=== PATIENT | female | born 1990 | race Caucasian/White ===

== ENCOUNTER 2020-12-11 15:49 | Inpatient (IN) | payer MEDICAID, SELFPAY ==
[2020-12-11 15:50] VITALS: BP 129/86; PULSE 93; RESP 16; O2SAT 96; BMI 40.3
[2020-12-11 16:11] LABS: Add Urine Microscopic? NO
[2020-12-11 16:14] VITALS: RESP 15
[2020-12-11 16:19] LABS: Basophils % 0.3 %; Eosinophils # 0.2 10^3/uL (0.0-0.8); Eosinophils % 1.8 %; Hematocrit 38.4 % (37.0-47.0); Hemoglobin 12.1 g/dL (11.5-15.3); Lymphocytes # 2.6 10^3/uL (0.8-4.8); Lymphocytes % 23.9 %; Mean Corpuscular HGB Conc 31.5 g/dL (30.0-36.0); Mean Corpuscular Hemoglobin 26.8 pg (28.0-34.0); Mean Corpuscular Volume 85.1 fL (81-99); Mean Platelet Volume 8.3 fL (7.4-10.4); Monocytes # 1.2 10^3/uL (0.2-0.9); Monocytes % 10.9 %; Neutrophils % 62.2 %; Nucleated Red Blood Cells % 0 %; Platelet Count 214 10^3/cmm (130-400); Red Blood Count 4.51 10^6/uL (4.1-5.3); Red Cell Distribution Width 17.4 % (12.1-15.1); White Blood Count 10.8 10^3/uL (4.0-10.0)
--- NOTE | 2020-12-11 16:20 | W.ED.PSYCH ---
Documented by User: Chevy Mason DO 12/14/20 16:49 HPI - Psych General: Chief Complaint: Psychiatric Symptoms Stated Complaint: HI/SI Time Seen by Provider: 12/11/20 15:52 History of Present Illness: HPI Narrative: 30-year-old female who is in a residential home. She was sent here by the staff they verbally reported to us that she had made suicidal threats although she denies it. She tells that she was upset because her smoking privileges have been revoked. When the staff called she stated they would not be sending any affidavits with her when the ambulance brought her in. On arrival here she is in good spirits she denies any suicidal or homicidal ideation admits she got angry because they revoked her smoking privileges. Is not given any of her as needed meds today. complaint: other (Explosive anger outburst.) Onset (ago): hour(s) Duration: intermittent History of same: Yes Relieving factors: none Exacerbating factors: none Context: other (became upset) Treatments prior to arrival: none Review of Systems Const: Denies: fever(s), chills, body aches, change in appetite, fatigue or malaise ENMT: Denies: throat pain, ear or mastoid pain, nasal discharge or nasal congestion Card: Denies: chest pain, edema, dyspnea on exertion or orthopnea Resp: Denies: dyspnea, productive cough or non-productive cough GI: Denies: abdominal pain, nausea, vomiting, hematemesis, coffee ground emesis, diarrhea, constipation, bloating, hematochezia or melena : Denies: flank pain, difficulty voiding, dysuria, urinary frequency or urinary urgency Skin/Breast: Denies: rash or pruritus Physical Exam Const: COMMON NORMALS: no acute distress GENERAL APPEARANCE: cooperative and comfortable ORIENTATION/CONSCIOUSNESS: Yes awake, Yes oriented to person, Yes oriented to place and Yes oriented to time HENMT: COMMON NORMALS: normocephalic, atraumatic and hearing grossly normal bilaterally HEAD & SCALP: normocephalic and atraumatic Neck/C-Spine: COMMON NORMALS: no JVD Resp: COMMON NORMALS: normal respiratory effort, No retractions, No use of accessory muscles and clear to auscultation bilaterally AUSCULTATION: clear to auscultation bilaterally Cardio: COMMON NORMALS: no JVD, regular rate, regular rhythm and No murmurs present (Cardio) RATE: regular rate RHYTHM: regular rhythm GI: COMMON NORMALS: Soft to palpation and No hepatosplenomegaly present AUSCULTATION: Yes normoactive bowel sounds PALPATION: Yes Soft to palpation, No Tenderness to palpation present (GI), No Guarding due to palpation present (GI) and Yes No hepatosplenomegaly present Extremity: COMMON NORMALS: normal to inspection, capillary refill normal, no clubbing, cyanosis or edema, no calf tenderness and no pedal edema Neuro: SENSORIUM/ORIENTATION: Yes oriented to person, Yes oriented to place and Yes oriented to time Skin: COMMON NORMALS: no rashes or lesions noted GENERAL SKIN EXAM: no rashes or lesions noted MDM - Psych MDM Narrative: Medical decision making narrative: Patient presented via EMS to complaint per the [facility] was that she was suicidal however they declined to send a caregiver to witness and declined to sign any affidavits initially. Patient denied any suicidal ideation while here and we were intending to discharge. The [facility] then states they had emergently discharged and refused to take her back. We are working looking at different options for disposition at this point care turned over to Dr. Joshua have discussed the case with him. Lab Data: Labs: Lab Results 12/11/20 12/11/20 12/11/20 Range/Units 16:07 16:07 16:10 WBC 10.8 H (4.0-10.0) 10^3/ uL RBC 4.51 (4.1-5.3) 10^6/u L Hgb 12.1 (11.5-15.3) g/dL Hct 38.4 (37.0-47.0) % MCV 85.1 (81-99) fL MCH 26.8 L (28.0-34.0) pg MCHC 31.5 (30.0-36.0) g/dL RDW 17.4 H (12.1-15.1) % Plt Count 214 (130-400) 10^3/c mm MPV 8.3 (7.4-10.4) fL Neut % (Auto) 62.2 % Lymph % (Auto) 23.9 % [place] % (Auto) 10.9 % Eos % (Auto) 1.8 % Baso % (Auto) 0.3 % Neut # (Auto) 6.70 (1.8-7.7) 10^3/u L Lymph # (Auto) 2.6 (0.8-4.8) 10^3/u L [place] # (Auto) 1.2 H (0.2-0.9) 10^3/u L Eos # (Auto) 0.2 (0.0-0.8) 10^3/u L Baso # (Auto) 0.0 (0.0-0.1) 10^3/u L Nucleated RBC % (a uto) 0 % Nucleated RBCs # 0.0 /100WBC Sodium (136-145) mmol/L Potassium (3.5-5.1) mmol/L Chloride (98-107) mmol/L Carbon Dioxide (22-29) mmol/L Anion Gap (5-19) BUN (6-20) mg/dL Creatinine (0.5-0.9) mg/dL GFR Calculation (90-130) mL/min Glucose (65-115) mg/dL Calculated Osmolal ity (285-295) mOsm/k g Calcium (8.5-10.5) mg/dL Total Bilirubin (0.15-1.2) mg/dL AST (0-32) U/L ALT (0-33) U/L Alkaline Phosphata se (35-105) IU/L Total Protein (6.6-8.7) g/dL Albumin (3.5-5.2) g/dL Globulin (1.3-4.6) g/dL HCG, Qual Negative (Negative) Urine Color Yellow (Yellow) Urine Appearance Clear (CLEAR) Urine pH 7 (5-7) Ur Specific Gravit y 1.005 (1.005-1.030) Urine Protein Neg (Negative) Urine Glucose (UA) Norm (Normal) Urine Ketones Negative (Negative) Urine Blood Neg (Negative) Urine Nitrate Negative (Negative) Urine Bilirubin Neg (Negative) Urine Urobilinogen Norm (Negative) mg/dL Ur Leukocyte Kati ase Negative (Negative) Salicylates (3-10) mg/dL Acetaminophen (10-30) ug/mL Valproic Acid (50-100) ug/mL 12/11/20 12/12/20 Range/Units 16:10 06:54 WBC (4.0-10.0) 10^3/ uL RBC (4.1-5.3) 10^6/u L Hgb (11.5-15.3) g/dL Hct (37.0-47.0) % MCV (81-99) fL MCH (28.0-34.0) pg MCHC (30.0-36.0) g/dL RDW (12.1-15.1) % Plt Count (130-400) 10^3/c mm MPV (7.4-10.4) fL Neut % (Auto) % Lymph % (Auto) % Beau[place] % (Auto) % Eos % (Auto) % Baso % (Auto) % Neut # (Auto) (1.8-7.7) 10^3/u L Lymph # (Auto) (0.8-4.8) 10^3/u L [place] # (Auto) (0.2-0.9) 10^3/u L Eos # (Auto) (0.0-0.8) 10^3/u L Baso # (Auto) (0.0-0.1) 10^3/u L Nucleated RBC % (a uto) % Nucleated RBCs # /100WBC Sodium 138 (136-145) mmol/L Potassium 4.3 (3.5-5.1) mmol/L Chloride 103 (98-107) mmol/L Carbon Dioxide 23 (22-29) mmol/L Anion Gap 16.3 (5-19) BUN 7 (6-20) mg/dL Creatinine 0.8 (0.5-0.9) mg/dL GFR Calculation 84.2 L (90-130) mL/min Glucose 107 (65-115) mg/dL Calculated Osmolal ity 284 L (285-295) mOsm/k g Calcium 8.7 (8.5-10.5) mg/dL Total Bilirubin 0.2 (0.15-1.2) mg/dL AST 14 (0-32) U/L ALT 18 (0-33) U/L Alkaline Phosphata se 79 (35-105) IU/L Total Protein 7.9 (6.6-8.7) g/dL Albumin 3.9 (3.5-5.2) g/dL Globulin 4.0 (1.3-4.6) g/dL HCG, Qual (Negative) Urine Color (Yellow) Urine Appearance (CLEAR) Urine pH (5-7) Ur Specific Gravit y (1.005-1.030) Urine Protein (Negative) Urine Glucose (UA) (Normal) Urine Ketones (Negative) Urine Blood (Negative) Urine Nitrate (Negative) Urine Bilirubin (Negative) Urine Urobilinogen (Negative) mg/dL Ur Leukocyte Kati ase (Negative) Salicylates 0.5 L (3-10) mg/dL Acetaminophen < 5.0 L (10-30) ug/mL Valproic Acid 15.6 L (50-100) ug/mL Discharge Plan Discharge Patient Disposition: Admitted As Inpatient Admit Provider: Chrsitian Adamson Clinical Impression: Intermittent explosive, Bipolar disorder, Depression Condition: Stable Coding Level of Care Code ED Data Analyst Etl Developer for Chg Fwd Exam Comprehensive Documented by User: Asad Joshua MD 12/11/20 21:01 HPI - Psych General: Chief Complaint: Psychiatric Symptoms Stated Complaint: HI/SI Time Seen by Provider: 12/11/20 15:52 MDM - Psych MDM Narrative: Medical decision making narrative: I took patient over from Dr. Presley. I did speak to the psychiatric nursing aide who had witnessed the event. She states that she was very agitated and tried to harm the staff and also made suicidal statements about breaking a pot and cutting her neck. Patient here has been cooperative but spoke to the psychiatrist will admit here for observation for this event. Lab Data: Labs: Lab Results 12/11/20 12/11/20 12/11/20 Range/Units 16:07 16:07 16:10 WBC 10.8 H (4.0-10.0) 10^3/ uL RBC 4.51 (4.1-5.3) 10^6/u L Hgb 12.1 (11.5-15.3) g/dL Hct 38.4 (37.0-47.0) % MCV 85.1 (81-99) fL MCH 26.8 L (28.0-34.0) pg MCHC 31.5 (30.0-36.0) g/dL RDW 17.4 H (12.1-15.1) % Plt Count 214 (130-400) 10^3/c mm MPV 8.3 (7.4-10.4) fL Neut % (Auto) 62.2 % Lymph % (Auto) 23.9 % Beau[place] % (Auto) 10.9 % Eos % (Auto) 1.8 % Baso % (Auto) 0.3 % Neut # (Auto) 6.70 (1.8-7.7) 10^3/u L Lymph # (Auto) 2.6 (0.8-4.8) 10^3/u L [place] # (Auto) 1.2 H (0.2-0.9) 10^3/u L Eos # (Auto) 0.2 (0.0-0.8) 10^3/u L Baso # (Auto) 0.0 (0.0-0.1) 10^3/u L Nucleated RBC % (a uto) 0 % Nucleated RBCs # 0.0 /100WBC Sodium (136-145) mmol/L Potassium (3.5-5.1) mmol/L Chloride (98-107) mmol/L Carbon Dioxide (22-29) mmol/L Anion Gap (5-19) BUN (6-20) mg/dL Creatinine (0.5-0.9) mg/dL GFR Calculation (90-130) mL/min Glucose (65-115) mg/dL Calculated Osmolal ity (285-295) mOsm/k g Calcium (8.5-10.5) mg/dL Total Bilirubin (0.15-1.2) mg/dL AST (0-32) U/L ALT (0-33) U/L Alkaline Phosphata se (35-105) IU/L Total Protein (6.6-8.7) g/dL Albumin (3.5-5.2) g/dL Globulin (1.3-4.6) g/dL HCG, Qual Negative (Negative) Urine Color Yellow (Yellow) Urine Appearance Clear (CLEAR) Urine pH 7 (5-7) Ur Specific Gravit y 1.005 (1.005-1.030) Urine Protein Neg (Negative) Urine Glucose (UA) Norm (Normal) Urine Ketones Negative (Negative) Urine Blood Neg (Negative) Urine Nitrate Negative (Negative) Urine Bilirubin Neg (Negative) Urine Urobilinogen Norm (Negative) mg/dL Ur Leukocyte Kati ase Negative (Negative) Salicylates (3-10) mg/dL Acetaminophen (10-30) ug/mL Valproic Acid (50-100) ug/mL 12/11/20 12/12/20 Range/Units 16:10 06:54 WBC (4.0-10.0) 10^3/ uL RBC (4.1-5.3) 10^6/u L Hgb (11.5-15.3) g/dL Hct (37.0-47.0) % MCV (81-99) fL MCH (28.0-34.0) pg MCHC (30.0-36.0) g/dL RDW (12.1-15.1) % Plt Count (130-400) 10^3/c mm MPV (7.4-10.4) fL Neut % (Auto) % Lymph % (Auto) % [place] % (Auto) % Eos % (Auto) % Baso % (Auto) % Neut # (Auto) (1.8-7.7) 10^3/u L Lymph # (Auto) (0.8-4.8) 10^3/u L [place] # (Auto) (0.2-0.9) 10^3/u L Eos # (Auto) (0.0-0.8) 10^3/u L Baso # (Auto) (0.0-0.1) 10^3/u L Nucleated RBC % (a uto) % Nucleated RBCs # /100WBC Sodium 138 (136-145) mmol/L Potassium 4.3 (3.5-5.1) mmol/L Chloride 103 (98-107) mmol/L Carbon Dioxide 23 (22-29) mmol/L Anion Gap 16.3 (5-19) BUN 7 (6-20) mg/dL Creatinine 0.8 (0.5-0.9) mg/dL GFR Calculation 84.2 L (90-130) mL/min Glucose 107 (65-115) mg/dL Calculated Osmolal ity 284 L (285-295) mOsm/k g Calcium 8.7 (8.5-10.5) mg/dL Total Bilirubin 0.2 (0.15-1.2) mg/dL AST 14 (0-32) U/L ALT 18 (0-33) U/L Alkaline Phosphata se 79 (35-105) IU/L Total Protein 7.9 (6.6-8.7) g/dL Albumin 3.9 (3.5-5.2) g/dL Globulin 4.0 (1.3-4.6) g/dL HCG, Qual (Negative) Urine Color (Yellow) Urine Appearance (CLEAR) Urine pH (5-7) Ur Specific Gravit y (1.005-1.030) Urine Protein (Negative) Urine Glucose (UA) (Normal) Urine Ketones (Negative) Urine Blood (Negative) Urine Nitrate (Negative) Urine Bilirubin (Negative) Urine Urobilinogen (Negative) mg/dL Ur Leukocyte Kati ase (Negative) Salicylates 0.5 L (3-10) mg/dL Acetaminophen < 5.0 L (10-30) ug/mL Valproic Acid 15.6 L (50-100) ug/mL Discharge Plan Discharge Patient Disposition: Admitted As Inpatient Admit Provider: Christian Adamson Clinical Impression: Intermittent explosive, Bipolar disorder, Depression Condition: Stable Coding Level of Care Code ED Data Analyst Etl Developer for Felixg Fwd Exam Comprehensive
[2020-12-11 16:41] LABS: Bilirubin Urine Neg (Negative); Blood Urine Neg (Negative); Glucose Urine UA Norm (Normal); Ketones Urine Negative (Negative); Leukocyte Esterase Urine Negative (Negative); Nitrate Urine Negative (Negative); Protein Urine Neg (Negative); Specific Gravity, Urine 1.005 (1.005-1.030); Urine Appearance Clear (CLEAR); Urine Color Yellow (Yellow); Urobilinogen Urine Norm (Negative); pH Urine 7 (5-7)
[2020-12-11 16:42] LABS: HCG Qualitative Urine. Negative (Negative)
[2020-12-11 16:56] LABS: Alanine Aminotransferase 18 U/L (0-33); Albumin Level 3.9 g/dL (3.5-5.2); Alkaline Phosphatase 79 IU/L (35-105); Anion Gap 16.3 (5-19); Aspartate Amino Transferase 14 U/L (0-32); Blood Urea Nitrogen 7 mg/dL (6-20); Calcium 8.7 mg/dL (8.5-10.5); Carbon Dioxide 23 mmol/L (22-29); Chloride 103 mmol/L (98-107); Glomerular Filtration Rate 84.2 mL/min (90-130); Glucose 107 mg/dL (65-115); Osmolality Calculated 284 mOsm/kg (285-295); Potassium 4.3 mmol/L (3.5-5.1); Salicylate 0.5 mg/dL (3-10); Sodium 138 mmol/L (136-145); Total Bilirubin 0.2 mg/dL (0.15-1.2); Total Protein 7.9 g/dL (6.6-8.7)
[2020-12-11 17:01] LABS: Acetaminophen < 5.0 ug/mL (10-30)
[2020-12-11 18:14] VITALS: RESP 18
[2020-12-11 21:33] VITALS: BP 107/60; PULSE 73; RESP 18; O2SAT 95
[2020-12-11 22:05] VITALS: BP 125/87; PULSE 87; RESP 18; TEMP 36.1; O2SAT 93
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
--- NOTE | 2020-12-12 02:21 | PC.NURSE ---
BEHAVIOR PT IS ATTENTION SEEKING BUT MOTIVATED BY EXPECTATION OF INDEPENDENCE TO ACHIEVE MOBILITY/SKILLS NECESSARY TO BE IN ISL SITUATION.
[2020-12-12 06:00] VITALS: BP 131/81; PULSE 110; RESP 16; TEMP 36.8; O2SAT 96
[2020-12-12] MEDS: levothyroxine 75 mcg Tablet PO (06:21)
[2020-12-12 07:29] LABS: Valproic Acid Level 15.6 ug/mL (50-100)
[2020-12-12] MEDS: fluticasone nasal spray 16gm Btl 1 SPRAY INTRANASAL (08:16)
[2020-12-12] MEDS: cholecalciferol (vitamin D3) 1,000 unit Tablet 2000 UNIT PO (08:17)
[2020-12-12] MEDS: CLONazepam 1 mg Tablet 1.5 MG PO ×3 (08:18→18:31)
[2020-12-12] MEDS: benztropine 1 mg Tablet 0.5 MG PO ×2 (08:18→18:32)
[2020-12-12] MEDS: topiramate 100 mg Tablet 200 MG PO ×2 (08:19→18:33)
[2020-12-12] MEDS: risperiDONE 2 mg Tablet PO ×2 (08:19→18:32)
[2020-12-12] MEDS: divalproex DR 500 mg Tablet PO ×2 (08:19→13:51)
[2020-12-12] MEDS: oxybutynin 5 mg Tablet 10 MG PO (08:19)
[2020-12-12] MEDS: lacosamide 50 mg Tablet 200 MG PO ×2 (08:51→18:33)
[2020-12-12 14:00] VITALS: BP 112/62; PULSE 92; RESP 16; TEMP 36.8; O2SAT 97
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
[2020-12-12] MEDS: sertraline 100 mg Tablet 150 MG PO (18:32)
[2020-12-12] MEDS: albuterol 8 gm MDI 2 PUFF INHALATION (19:45)
[2020-12-12 19:46] VITALS: PULSE 88; RESP 17; O2SAT 96
[2020-12-12 19:49] VITALS: PULSE 90
[2020-12-12 20:26] VITALS: BP 106/61; PULSE 118; RESP 17; TEMP 36.8; O2SAT 91
[2020-12-12] MEDS: neomycin-poly-bacitracin oint 28 gm 1 APPLIC TOPICAL (20:37)
[2020-12-12] MEDS: trazodone 50 mg Tablet PO (20:38)
[2020-12-12] MEDS: hyDROXYzine 25 mg Capsule 50 MG PO (20:39)
[2020-12-12] MEDS: divalproex DR 500 mg Tablet 750 MG PO (20:39)
--- NOTE | 2020-12-12 20:40 | PC.NURSE ---
Patient requested Trazodone for sleep and Vistaril for anxiety. 50mg Trazodone, 50mg Vistaril given.
[2020-12-13] VITALS (8 sets, daily range): BP systolic 116–143; BP diastolic 77–86; PULSE 91–126; RESP 17–22; TEMP 36.8–37.1; O2SAT 92–96
[2020-12-13] MEDS: levothyroxine 75 mcg Tablet PO (05:44)
[2020-12-13] MEDS: albuterol 8 gm MDI 2 PUFF INHALATION ×2 (07:44→15:35)
[2020-12-13] MEDS: CLONazepam 1 mg Tablet PO ×3 (07:47→16:36)
[2020-12-13] MEDS: CLONazepam 0.5 mg Tablet PO ×3 (07:48→16:37)
[2020-12-13] MEDS: benztropine 1 mg Tablet 0.5 MG PO ×2 (07:48→16:35)
[2020-12-13] MEDS: cholecalciferol (vitamin D3) 1,000 unit Tablet 2000 UNIT PO (07:48)
[2020-12-13] MEDS: oxybutynin 5 mg Tablet 10 MG PO (07:48)
[2020-12-13] MEDS: topiramate 100 mg Tablet 200 MG PO ×2 (07:49→16:34)
[2020-12-13] MEDS: lacosamide 50 mg Tablet 200 MG PO ×2 (07:49→16:34)
[2020-12-13] MEDS: divalproex DR 500 mg Tablet PO ×2 (07:49→11:54)
[2020-12-13] MEDS: fluticasone nasal spray 16gm Btl 1 SPRAY INTRANASAL (07:50)
[2020-12-13] MEDS: risperiDONE 2 mg Tablet PO ×2 (08:05→16:37)
--- NOTE | 2020-12-13 10:59 | PC.RESP ---
Pt had been given 0800 Albuterol MDI, schedule changed, so inhaler not given at 0900.
--- NOTE | 2020-12-13 15:47 | P.PN_ITS ---
Subjective NPU Subjective: Interval history: Letty continues to have significant hypersomnolence during the day but is not presenting any problem to staff or having any anger directed aggression. She had an interview with a residential program and is awaiting to hear. She denies any new or pressing issues and reports she is eating okay. Mental Status Exam MSE Comments: This is an obese versus morbidly obese white female in hospital scrubs with limited grooming and eye contact. No abnormal movements except for psychomotor retardation. Cooperative with exam in no acute distress. Speech wa s decreased rate and volume and childlike. Mood described as okay, affect congruent. Thought process linear. Thought content: Patient denied current suicidal or homicidal ideation, there were no delusions reported or noted, she denied any auditory or visual hallucinations. Attention and concentration were mostly intact intact and memory appeared mostly reliable, but none were formally tested. She is alert and oriented x3. Insight and judgment are limited, impulse control is limited, intellectual ability is impaired. Vitals/I&O/Wt Last Vital Signs Temp 98.2 F 12/13/20 22:00 Pulse 100 12/13/20 22:00 Resp 17 12/13/20 22:00 BP 135/80 12/13/20 22:00 Pulse Ox 92 12/13/20 22:00 Data NPU : 12/11/20 16:10 12/11/20 16:10 A&P Assessment and plan (1) Intermittent explosive: Status: Acute (2) Bipolar disorder: Status: Acute (3) Depression: Status: Acute Additional A&P Information (1) Intellectual disability: Additional A&P Information This is a 30-year-old white female with a long history of intellectual disability and mental health hospitalizations and treatment going back to her teenage years presents again effectively discharged from a long-term secondary to not being able to manage her anger and behaviors. 1. Continue current medication. We will evaluate medications for any need for changes. 2. Continue every 15 minute checks for safety. 3. Encourage individual, group and milieu therapies. 4. We will get collateral information on the circumstances at the long-term and work with the social work team to either get her back to the long-term or alternative living arrangements. Involuntary Hold Information 96 Hour Hold: 96 Hour Involuntary Admission: No Attestations NPU Medical Necessity Statement*: Inpatient hospitalization is medically necessary and the clinically appropriate intervention at this time. We will monitor medications and make changes as indicated. Likely length of stay 2-4 days. Coding Level of Care Code Acute Machine Setter Supervisor for g Fwd Diagnoses Intermittent explosive F63.81 Bipolar disorder F31.9 Depression F32.9
[2020-12-13] MEDS: sertraline 100 mg Tablet 150 MG PO (16:36)
[2020-12-13] MEDS: acetaminophen 325 mg Tablet 650 MG PO (19:42)
[2020-12-13] MEDS: hyDROXYzine 25 mg Capsule 50 MG PO (21:14)
[2020-12-13] MEDS: trazodone 50 mg Tablet PO (21:14)
[2020-12-13] MEDS: divalproex DR 500 mg Tablet 750 MG PO (21:14)
--- NOTE | 2020-12-13 21:15 | PC.NURSE ---
Patient given 50mg PO Trazadone and 50Mg Vistaril 50mg PO for fimsomnia and anxiety: at patient request.
[2020-12-13] MEDS: neomycin-poly-bacitracin oint 28 gm 1 APPLIC TOPICAL (21:22)
[2020-12-14] MEDS: levothyroxine 75 mcg Tablet PO (05:53)
[2020-12-14] MEDS: acetaminophen 325 mg Tablet 650 MG PO ×2 (05:56→19:57)
[2020-12-14 06:00] VITALS: BP 111/65; PULSE 87; RESP 18; TEMP 36.9; O2SAT 92
[2020-12-14] MEDS: cholecalciferol (vitamin D3) 1,000 unit Tablet 2000 UNIT PO (08:26)
[2020-12-14] MEDS: topiramate 100 mg Tablet 200 MG PO ×2 (08:27→16:54)
[2020-12-14] MEDS: risperiDONE 2 mg Tablet PO ×2 (08:27→16:55)
[2020-12-14] MEDS: lacosamide 50 mg Tablet 200 MG PO ×2 (08:28→16:56)
[2020-12-14] MEDS: fluticasone nasal spray 16gm Btl 1 SPRAY INTRANASAL (08:28)
[2020-12-14] MEDS: oxybutynin 5 mg Tablet 10 MG PO (08:28)
[2020-12-14 09:36] VITALS: PULSE 108; RESP 14; O2SAT 95
[2020-12-14] MEDS: albuterol 8 gm MDI 2 PUFF INHALATION ×2 (09:36→14:18)
[2020-12-14] MEDS: benztropine 1 mg Tablet 0.5 MG PO ×2 (10:11→16:54)
[2020-12-14] MEDS: CLONazepam 1 mg Tablet PO ×2 (10:11→21:13)
[2020-12-14] MEDS: divalproex DR 500 mg Tablet PO ×2 (10:11→11:05)
[2020-12-14] MEDS: CLONazepam 0.5 mg Tablet PO ×2 (10:11→21:13)
[2020-12-14 13:36] VITALS: BP 128/92; PULSE 119; RESP 16; TEMP 36.3; O2SAT 99
[2020-12-14 14:22] VITALS: PULSE 97; RESP 14; O2SAT 91
[2020-12-14] MEDS: sertraline 100 mg Tablet 150 MG PO (16:55)
--- NOTE | 2020-12-14 19:22 | P.PN_ITS ---
Subjective NPU Subjective: Interval history: Letty presented to the appointment much how she has during the stay some attention seeking and requesting assistance with basic activities. We reiterated with her that she was hoping to have the ISL eventually she has to start working on her independence. Otherwise no current challenges or new challenges since admission. Mental Status Exam MSE Comments: This is an obese versus morbidly obese white female in hospital scrubs with limited grooming and eye contact. No abnormal movements except for psychomotor retardation and what appears to be an essential tremor. Cooperative with exam in no acute distress. Speech was decreased rate and volume and childlike. Mood described as frustrated, affect congruent. Thought process linear. Thought content: Patient denied current suicidal or homicidal ideation, there were no delusions reported or noted, she denied any auditory or visual hallucinations. Attention and concentration were mostly intact intact and memory appeared mostly reliable, but none were formally tested. She is alert and oriented x3. Insight and judgment are limited, impulse control is limited, intellectual ability is impaired. Vitals/I&O/Wt Last Vital Signs Temp 97.0 F L 12/14/20 20:13 Pulse 77 12/14/20 21:09 Resp 14 12/14/20 21:09 BP 98/66 12/14/20 20:13 Pulse Ox 96 12/14/20 21:09 Data NPU : 12/11/20 16:10 12/11/20 16:10 A&P Assessment and plan (1) Intellectual disability: Status: Acute (2) Intermittent explosive: Status: Acute (3) Bipolar disorder: Status: Acute (4) Depression: Status: Acute Additional A&P Information Additional A&P Information This is a 30-year-old white female with a long history of intellectual disability and mental health hospitalizations and treatment going back to her teenage years presents again effectively discharged from a long term secondary to not being able to manage her anger and behaviors. 1. Continue current medication. We will evaluate medications for any need for changes. 2. Continue every 15 minute checks for safety. 3. Encourage individual, group and milieu therapies. 4. We will get collateral information on the circumstances at the long term and work with the social work team to either get her back to the long term or alternative living arrangements. Involuntary Hold Information 96 Hour Hold: 96 Hour Involuntary Admission: No Attestations NPU Medical Necessity Statement*: Inpatient hospitalization is medically necessary and the clinically appropriate intervention at this time. We will monitor medications and make changes as indicated. Likely length of stay 2-4 days. 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
[2020-12-14 20:13] VITALS: BP 98/66; PULSE 96; RESP 18; TEMP 36.1; O2SAT 90
[2020-12-14 21:09] VITALS: PULSE 77; RESP 14; O2SAT 96
[2020-12-14] MEDS: divalproex DR 500 mg Tablet 750 MG PO (21:12)
[2020-12-14] MEDS: hyDROXYzine 25 mg Capsule 50 MG PO (21:13)
--- NOTE | 2020-12-14 21:14 | PC.NURSE ---
visteril 50mg given at patient request for anxiety
[2020-12-14] MEDS: neomycin-poly-bacitracin oint 28 gm 1 APPLIC TOPICAL (22:54)
[2020-12-15] VITALS (7 sets, daily range): BP systolic 107–139; BP diastolic 67–89; PULSE 78–113; RESP 16–20; TEMP 36.4–36.7; O2SAT 92–96
[2020-12-15] MEDS: levothyroxine 75 mcg Tablet PO (05:52)
[2020-12-15] MEDS: acetaminophen 325 mg Tablet 650 MG PO ×2 (06:22→14:07)
[2020-12-15] MEDS: topiramate 100 mg Tablet 200 MG PO ×2 (07:40→17:35)
[2020-12-15] MEDS: cholecalciferol (vitamin D3) 1,000 unit Tablet 2000 UNIT PO (07:40)
[2020-12-15] MEDS: lacosamide 50 mg Tablet 200 MG PO ×2 (07:40→17:33)
[2020-12-15] MEDS: CLONazepam 1 mg Tablet PO ×2 (07:40→21:04)
[2020-12-15] MEDS: fluticasone nasal spray 16gm Btl 1 SPRAY INTRANASAL (07:41)
[2020-12-15] MEDS: oxybutynin 5 mg Tablet 10 MG PO (07:41)
[2020-12-15] MEDS: CLONazepam 0.5 mg Tablet PO ×2 (07:41→21:04)
[2020-12-15] MEDS: risperiDONE 2 mg Tablet PO ×2 (07:41→17:34)
[2020-12-15] MEDS: divalproex DR 500 mg Tablet PO ×2 (07:41→12:21)
[2020-12-15] MEDS: benztropine 1 mg Tablet 0.5 MG PO ×2 (07:41→17:34)
--- NOTE | 2020-12-15 08:15 | PC.NURSE ---
PT ACTIVITY; PTS ROOM MATE CAME TO NURSES STATION TO IN FORM STAFF THE THIS PATIENT HAD FELL WHILE GETTING UP FROM THE BED. STAFF WENT TO PTS ROOM TO FIND CLIENT SITTING ON THE FALL MAT IN FRONT OF HER BED. CLIENT ASSISTED UP TO THE BEDSIDE WITH 2 STAFF MEMBERS ASSISTANCE. CLIENT WAS ACCESSED AND FOUND TO HAVE NO APPARENT INJURIES FROM HER UNWITNESSED FALL FROM THE BED TO THE FALL MAT. CLIENT STATED THAT STAFF AT THE HALF-WAY WERE SHE NORMALLY RESIDES HAVE ACCUSED HER OF FALLING FOR ATTENTION IN HTE PAST. STAFF HER ON THE UNIT ENCOURAGED HER TO BE VERY CAREFUL WHEN GETTING IN AND OUT OF BED. STAFF WILL CONTINUE TO MONITOR.
--- NOTE | 2020-12-15 09:27 | P.PN_ITS ---
Subjective NPU Subjective: Interval history: Letty presents today continuing to have physical struggles and need for staff to redirect her to have some level of independence, but it appears to be working. She is having less of her calling out and is being more active on the unit in a positive way. Though she still does have emotional challenges he continues to give her the behavioral target would like her to meet given her ultimate goal for greater independence in a penitentiary. Mental Status Exam MSE Comments: This is an obese versus morbidly obese white female in hospital scrubs with limited grooming and eye contact. No abnormal movements except for psychomotor retardation and what appears to be an essential tremor. Cooperative with exam in no acute distress. Speech was decreased rate and volume and childlike. Mood described as okay, affect congruent. Thought process linear. Thought content: Patient denied current suicidal or homicidal ideation, there were no delusions reported or noted, she denied any auditory or visual hallucinations. Attention and concentration were mostly intact and memory appeared mostly reliable, but none were formally tested. She is alert and or iented x3. Insight and judgment are limited, impulse control is limited, intellectual ability is impaired. Vitals/I&O/Wt Last Vital Signs Temp 98.0 F 12/15/20 06:00 Pulse 113 H 12/15/20 08:35 Resp 20 H 12/15/20 08:35 BP 139/89 12/15/20 08:35 Pulse Ox 96 12/15/20 08:35 Data NPU : 12/11/20 16:10 12/11/20 16:10 A&P Additional A&P Information (1) Intellectual disability: (2) Intermittent explosive: (3) Bipolar disorder: (4) Depression: Additional A&P Information Additional A&P Information This is a 30-year-old white female with a long history of intellectual disability and mental health hospitalizations and treatment going back to her teenage years presents again effectively discharged from a penitentiary secondary to not being able to manage her anger and behaviors. 1. Continue current medication. We will evaluate medications for any need for changes. 2. Continue every 15 minute checks for safety. 3. Encourage individual, group and milieu therapies. 4. We will get collateral information on the circumstances at the penitentiary and work with the social work team to either get her back to the penitentiary or alternative living arrangements. Involuntary Hold Information 96 Hour Hold: 96 Hour Involuntary Admission: No Attestations NPU Medical Necessity Statement*: Inpatient hospitalization is medically necessary and the clinically appropriate intervention at this time. We will monitor medications and make changes as indicated. Likely length of stay 2-4 days. 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
[2020-12-15] MEDS: albuterol 8 gm MDI 2 PUFF INHALATION ×2 (09:30→14:35)
[2020-12-15] MEDS: sertraline 100 mg Tablet 150 MG PO (17:34)
[2020-12-15] MEDS: divalproex DR 500 mg Tablet 750 MG PO (21:06)
[2020-12-15] MEDS: neomycin-poly-bacitracin oint 28 gm 1 APPLIC TOPICAL (21:07)
[2020-12-15] MEDS: hyDROXYzine 25 mg Capsule 50 MG PO (21:08)
--- NOTE | 2020-12-15 21:08 | PC.NURSE ---
PATIENT REQUESTED 50MG VISTRAL FOR ANXIETY / SLEEP
[2020-12-16] MEDS: acetaminophen 325 mg Tablet 650 MG PO (01:46)
[2020-12-16] MEDS: levothyroxine 75 mcg Tablet PO (05:40)
[2020-12-16 06:00] VITALS: BP 112/72; PULSE 76; RESP 15; TEMP 36.6; O2SAT 94
[2020-12-16] MEDS: albuterol 8 gm MDI 2 PUFF INHALATION ×2 (08:48→14:40)
[2020-12-16 08:49] VITALS: PULSE 75; RESP 18; O2SAT 97
[2020-12-16] MEDS: benztropine 1 mg Tablet 0.5 MG PO ×2 (08:56→16:24)
[2020-12-16] MEDS: CLONazepam 1 mg Tablet PO ×2 (08:57→21:28)
[2020-12-16] MEDS: cholecalciferol (vitamin D3) 1,000 unit Tablet 2000 UNIT PO (08:57)
[2020-12-16] MEDS: divalproex DR 500 mg Tablet PO ×2 (08:57→13:04)
[2020-12-16] MEDS: lacosamide 50 mg Tablet 200 MG PO ×2 (08:57→16:23)
[2020-12-16] MEDS: oxybutynin 5 mg Tablet 10 MG PO (08:57)
[2020-12-16] MEDS: CLONazepam 0.5 mg Tablet PO ×2 (08:57→21:28)
[2020-12-16] MEDS: risperiDONE 2 mg Tablet PO ×2 (08:58→16:24)
[2020-12-16] MEDS: topiramate 100 mg Tablet 200 MG PO ×2 (08:58→16:23)
[2020-12-16] MEDS: fluticasone nasal spray 16gm Btl 1 SPRAY INTRANASAL (09:03)
[2020-12-16] MEDS: neomycin-poly-bacitracin oint 28 gm 1 APPLIC TOPICAL (09:03)
--- NOTE | 2020-12-16 13:05 | PC.NURSE ---
DEPAKOTE 1200 DEPAKOTE ADMINISTERED LATE DUE TO PATIENT REFUSING TO GET OUT OF BED.
[2020-12-16 13:53] VITALS: BP 113/74; PULSE 78; RESP 18; TEMP 36.6
[2020-12-16 14:41] VITALS: PULSE 130; RESP 20; O2SAT 98
[2020-12-16] MEDS: sertraline 100 mg Tablet 150 MG PO (16:23)
--- NOTE | 2020-12-16 16:26 | PC.NURSE ---
PER VERBAL AUTHORIZATION FROM DR. HIRA MCCULLOUGH GAVE 1800 MEDS @ 1630 DUE TO PATIENT BEHAVIOR.
--- NOTE | 2020-12-16 16:29 | PM.NPN ---
Subjective NPU Subjective: Interval history: Letty presents today being more active and up and out of her room. She has done improved grooming with some assistance. She spoke today about being happy she is getting that assistance and that someone will be working with her regularly which makes her happy. She was proactive in using her words to fix any concern she has and he needs that she has which we assisted in for filling. She says he misses a roommate but otherwise had no issues that were new or pressing. Mental Status Exam MSE Comments: This is an obese versus morbidly obese white female in hospital scrubs with limited grooming and eye contact. No abnormal movements except for psychomotor retardation and an essential tremor. Cooperative with exam in no acute distress. Speech was decreased rate and volume and childlike and somewhat dysarthric. Mood described as a little better, affect congruent. Thought process l organized. Thought content: Patient denied current suicidal or homicidal ideation, there were no delusions reported or noted, she denied any auditory or visual hallucinations. Attention and concentration were mostly intact and memory appeared mostly reliable, but none were formally tested. She is alert and oriented x3. Insight and judgment are limited, but improving impulse control is limited, intellectual ability is limited versus impaired. Vitals/I&O/Wt Last Vital Signs Temp 97.9 F 12/16/20 13:53 Pulse 130 H 12/16/20 14:41 Resp 20 H 12/16/20 14:41 BP 113/74 12/16/20 13:53 Pulse Ox 98 12/16/20 14:41 Weight last 48 hrs Weight 113.398 kg Data NPU : 12/11/20 16:10 12/11/20 16:10 A&P Additional A&P Information (1) Intellectual disability: (2) Intermittent explosive: (3) Bipolar disorder: (4) Depression: Additional A&P Information Additional A&P Information This is a 30-year-old white female with a long history of intellectual disability and mental health hospitalizations and treatment going back to her teenage years presents again effectively discharged from a skilled nursing secondary to not being able to manage her anger and behaviors. 1. Continue current medication. We will evaluate medications for any need for changes. 2. Continue every 15 minute checks for safety. 3. Encourage individual, group and milieu therapies. 4. We will get collateral information on the circumstances at the skilled nursing and work with the social work team to either get her back to the skilled nursing or alternative living arrangements. Involuntary Hold Information 96 Hour Hold: 96 Hour Involuntary Admission: No Attestations NPU Medical Necessity Statement*: Inpatient hospitalization is medically necessary and the clinically appropriate intervention at this time. We will monitor medications and make changes as indicated. Likely length of stay 2-4 days. Awaiting response from recent interviewing facility. 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
[2020-12-16 20:43] VITALS: BP 97/63; PULSE 91; RESP 16; TEMP 37.3; O2SAT 90
[2020-12-16] MEDS: hyDROXYzine 25 mg Capsule 50 MG PO (21:28)
[2020-12-16] MEDS: divalproex DR 500 mg Tablet 750 MG PO (21:28)
[2020-12-17] MEDS: OLANZapine 5 mg ODT PO (05:14)
[2020-12-17 06:00] VITALS: BP 101/68; PULSE 92; RESP 19; TEMP 36.6; O2SAT 92
[2020-12-17] MEDS: levothyroxine 75 mcg Tablet PO (06:04)
[2020-12-17] MEDS: cholecalciferol (vitamin D3) 1,000 unit Tablet 2000 UNIT PO (08:24)
[2020-12-17] MEDS: divalproex DR 500 mg Tablet PO ×2 (08:24→11:26)
[2020-12-17] MEDS: fluticasone nasal spray 16gm Btl 1 SPRAY INTRANASAL (08:24)
[2020-12-17] MEDS: risperiDONE 2 mg Tablet PO ×2 (08:25→16:28)
[2020-12-17] MEDS: lacosamide 50 mg Tablet 200 MG PO ×2 (08:25→16:30)
[2020-12-17] MEDS: CLONazepam 1 mg Tablet PO ×2 (08:25→21:25)
[2020-12-17] MEDS: CLONazepam 0.5 mg Tablet PO ×2 (08:25→21:25)
[2020-12-17] MEDS: oxybutynin 5 mg Tablet 10 MG PO (08:26)
[2020-12-17] MEDS: benztropine 1 mg Tablet 0.5 MG PO ×2 (08:26→16:29)
[2020-12-17] MEDS: topiramate 100 mg Tablet 200 MG PO ×2 (08:26→16:29)
[2020-12-17] MEDS: albuterol 8 gm MDI 2 PUFF INHALATION ×2 (08:36→13:54)
[2020-12-17 08:43] VITALS: PULSE 112; RESP 20; O2SAT 96
[2020-12-17 13:55] VITALS: PULSE 90; RESP 18; O2SAT 95
[2020-12-17 14:00] VITALS: BP 110/72; PULSE 85; RESP 16; TEMP 36.3; O2SAT 91
--- NOTE | 2020-12-17 16:23 | PM.NPN ---
Subjective NPU Subjective: Interval history: Troy presents today continuing to be out of her bed more often and more redirectable on the unit. She is taking her medication as directed and being more independent. She was extremely happy when we discussed the finding a discharge option/placement for her. She reports she is eating and sleeping better. Mental Status Exam MSE Comments: This is an obese versus morbidly obese white female in hospital scrubs with adequate grooming and eye contact. No abnormal movements except for mild psychomotor retardation and an essential tremor. Cooperative with exam in no acute distress. Speech was decreased rate and volume and childlike and somewhat dysarthric. Mood described as happy, affect congruent. Thought process more organized. Thought content: Patient denied current suicidal or homicidal ideation, there were no delusions reported or noted, she denied any auditory or visual hallucinations. Attention and concentration were mostly intact and memory appeared mostly reliable, but none were formally tested. She is alert and oriented x3. Insight and judgment are limited, but improving impulse control is limited, but improving intellectual ability is limited versus impaired. Vitals/I&O/Wt Last Vital Signs Temp 97.3 F L 12/17/20 22:00 Pulse 87 12/17/20 22:00 Resp 16 12/17/20 22:00 BP 95/64 12/17/20 22:00 Pulse Ox 94 12/17/20 22:00 Weight last 48 hrs Weight 113.398 kg Data NPU : 12/11/20 16:10 12/11/20 16:10 A&P Additional A&P Information (1) Intellectual disability: (2) Intermittent explosive: (3) Bipolar disorder: (4) Depression: Additional A&P Information Additional A&P Information This is a 30-year-old white female with a long history of intellectual disability and mental health hospitalizations and treatment going back to her teenage years presents again effectively discharged from a [place] [facility] secondary to not being able to manage her anger and behaviors. 1. Continue current medication. 2. Continue every 15 minute checks for safety. 3. Encourage individual, group and milieu therapies. 4. Placement obtained. We will get paperwork together for discharge in the morning. Involuntary Hold Information 96 Hour Hold: 96 Hour Involuntary Admission: No Attestations NPU Medical Necessity Statement*: Inpatient hospitalization is medically necessary and the clinically appropriate intervention at this time. We will monitor medications and make changes as indicated. Plan for discharge tomorrow. 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
[2020-12-17] MEDS: sertraline 100 mg Tablet 150 MG PO (16:29)
[2020-12-17] MEDS: acetaminophen 325 mg Tablet 650 MG PO (16:30)
[2020-12-17] MEDS: divalproex DR 500 mg Tablet 750 MG PO (21:26)
[2020-12-17 22:00] VITALS: BP 95/64; PULSE 87; RESP 16; TEMP 36.3; O2SAT 94
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
[2020-12-18] MEDS: levothyroxine 75 mcg Tablet PO (05:45)
[2020-12-18 06:38] VITALS: BP 187/96; PULSE 121; RESP 18; TEMP 36.6; O2SAT 95
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
[2020-12-18 07:49] VITALS: BP 187/96; PULSE 121; RESP 18; TEMP 36.6; O2SAT 95
[2020-12-18 08:03] VITALS: PULSE 110; RESP 20; O2SAT 95
[2020-12-18] MEDS: albuterol 8 gm MDI 2 PUFF INHALATION (08:03)
[2020-12-18 08:06] VITALS: PULSE 105
[2020-12-18] MEDS: divalproex DR 500 mg Tablet PO ×2 (08:24→11:00)
[2020-12-18] MEDS: fluticasone nasal spray 16gm Btl 1 SPRAY INTRANASAL (08:24)
[2020-12-18] MEDS: benztropine 1 mg Tablet 0.5 MG PO (08:24)
[2020-12-18] MEDS: oxybutynin 5 mg Tablet 10 MG PO (08:24)
[2020-12-18] MEDS: CLONazepam 1 mg Tablet PO (08:25)
[2020-12-18] MEDS: cholecalciferol (vitamin D3) 1,000 unit Tablet 2000 UNIT PO (08:25)
[2020-12-18] MEDS: topiramate 100 mg Tablet 200 MG PO (08:25)
[2020-12-18] MEDS: lacosamide 50 mg Tablet 200 MG PO (08:25)
[2020-12-18] MEDS: CLONazepam 0.5 mg Tablet PO (08:25)
[2020-12-18] MEDS: risperiDONE 2 mg Tablet PO (08:25)
== END 2020-12-18 12:04 | disposition skilled nursing facility (03) | DRG 885 ==
LOC: ER 21:00 → NP 21:17
PROVIDERS: Family Medicine; Admitting Provider Psychiatry & Neurology Psychiatry; Emergency Provider Emergency Medicine; Visit Provider Psychiatry & Neurology Psychiatry
DX: F33.9 Major depressive disorder, recurrent, unspecified (principal); R45.851 Suicidal ideations; Z68.41 Body mass index [BMI] 40.0-44.9, adult; Z91.14 Patient's other noncompliance with medication regimen; E07.9 Disorder of thyroid, unspecified; G40.909 Epilepsy, unspecified, not intractable, without status epilepticus; Z96.82 Presence of neurostimulator; R62.50 Unspecified lack of expected normal physiological development in childhood; E66.9 Obesity, unspecified; G47.10 Hypersomnia, unspecified; F63.81 Intermittent explosive disorder
CPT/HCPCS: 36415; 80053; 80164; 80307; 81003; 81025; 85025; 94640; 97110; 97161; 97166; 97530; 97535; 99285; G0378; J3535